=== PATIENT | female | born 1985 | race African-American/Black ===

== ENCOUNTER 2020-11-11 18:23 | Inpatient (IN) | payer OTHER ==
[2020-11-11 19:48] VITALS: BMI 27.5
[2020-11-11] MEDS ORDERED: MAG HYDROX/AL HYDROX/SIMETH 30 ML UNIT-DOSE CUP PO PRN (21:08)
[2020-11-11] MEDS ORDERED: MENTHOL/PHENOL 1 EACH UD MM PRN (21:08)
[2020-11-11] MEDS ORDERED: NICOTINE POLACRILEX 2 MG GUM BUC PRN (21:08)
[2020-11-11] MEDS ORDERED: ONDANSETRON *ODT* 4 MG TABLET SL PRN (21:08)
[2020-11-11] MEDS ORDERED: METHOCARBAMOL 500 MG TABLET PO PRN (21:08)
[2020-11-11] MEDS ORDERED: ACETAMINOPHEN 325 MG TABLET (FP) PO PRN (21:08)
[2020-11-11] MEDS ORDERED: MAGNESIUM CITRATE 300 ML BOTTLE PO PRN (21:08)
[2020-11-11] MEDS ORDERED: MAGNESIUM HYDROX 2400MG/30ML ORAL SUSPENSION 30 ML CUP PO PRN (21:08)
[2020-11-11] MEDS ORDERED: LORazepam 1 MG TABLET PO PRN (21:08)
[2020-11-11] MEDS ORDERED: BISMUTH SUBSALICYLATE 524 MG/30 ML PO PRN (21:08)
[2020-11-11] MEDS ORDERED: LORazepam 2 MG TABLET ONE (23:26)
[2020-11-11] MEDS: MELATONIN 5 MG TABLETS PO SCH (23:28)
[2020-11-11] MEDS: LORazepam 2 MG TABLET PO SCH (23:28)
[2020-11-11] MEDS: THIAMINE HCL 100 MG TABLET (FP) PO SCH (23:29)
[2020-11-12 11:07] LABS: HEMATOCRIT 37.6 % (32.4-45.2); MCH 32.7 pg (25.7-33.7); MCHC 34.7 g/dl (32.0-36.0); MEAN CELL VOLUME 94.4 fl (80-96); MEAN PLT VOLUME 8.5 fl (7.5-11.1); PLATELET COUNT 269 K/MM3 (134-434); RBC 3.98 M/mm3 (3.60-5.2); RDW 13.7 % (11.6-15.6); WHITE BLOOD COUNT 5.5 K/mm3 (4.0-10.0)
[2020-11-12 11:10] LABS: ALBUMIN 3.2 g/dl (3.4-5.0); CALCIUM 8.8 mg/dL (8.5-10.1)
[2020-11-12 11:11] LABS: BLOOD UREA NITROGEN 5.7 mg/dL (7-18)
[2020-11-12 11:14] LABS: CREATININE 0.4 mg/dL (0.55-1.3)
[2020-11-12 11:15] LABS: BILIRUBIN,TOTAL 1.1 mg/dL (0.2-1); TOT PROT 6.1 g/dl (6.4-8.2)
[2020-11-12] MEDS: NICOTINE 14 MG/24 HOURS TOPICAL PATCH TD SCH (13:22)
[2020-11-12] MEDS: LORazepam 2 MG TABLET PO SCH ×4 (13:22→22:43)
[2020-11-12] MEDS: PRENATAL VITAMINS W/ FOLIC ACID TABLET (FP) PO SCH (13:23)
[2020-11-12] MEDS: IBUPROFEN 400 MG TABLET (FP) PO PRN (20:30)
[2020-11-12] MEDS: THIAMINE HCL 100 MG TABLET (FP) PO SCH (22:43)
[2020-11-12] MEDS: MELATONIN 5 MG TABLETS PO SCH (22:43)
[2020-11-13] MEDS: LORazepam 1 MG TABLET PO SCH ×2 (05:48→11:36)
[2020-11-13] MEDS: ACETAMINOPHEN 325 MG TABLET (FP) PO PRN ×2 (05:49→18:24)
[2020-11-13] MEDS: IBUPROFEN 400 MG TABLET (FP) PO PRN (10:37)
[2020-11-13] MEDS: PRENATAL VITAMINS W/ FOLIC ACID TABLET (FP) PO SCH (11:36)
[2020-11-13] MEDS: NICOTINE 14 MG/24 HOURS TOPICAL PATCH TD SCH (11:36)
[2020-11-13] MEDS ORDERED: LORazepam 1 MG TABLET PO PRN (12:25)
[2020-11-13] MEDS ORDERED: POTASSIUM CHLORIDE ORAL LIQUID 20 MEQ/15 ML PO ONE ×2 (13:00→17:00)
[2020-11-13] MEDS ORDERED: LORazepam 1 MG TABLET PO SCH (17:00)
[2020-11-13] MEDS ORDERED: LORazepam 0.5 MG TABLET PO PRN (17:55)
[2020-11-13] MEDS: LORazepam 0.5 MG TABLET PO SCH ×2 (18:23→22:02)
[2020-11-13] MEDS: THIAMINE HCL 100 MG TABLET (FP) PO SCH (22:03)
[2020-11-13] MEDS: MELATONIN 5 MG TABLETS PO SCH (22:03)
[2020-11-14] MEDS ORDERED: LORazepam 0.5 MG TABLET PO PRN
[2020-11-14] MEDS ORDERED: LORazepam 0.5 MG TABLET PO ONE (05:00)
[2020-11-14] MEDS ORDERED: LORazepam 0.5 MG TABLET PO SCH (05:00)
[2020-11-14] MEDS: ACETAMINOPHEN 325 MG TABLET (FP) PO PRN (06:02)
[2020-11-14] MEDS: PRENATAL VITAMINS W/ FOLIC ACID TABLET (FP) PO SCH (11:02)
[2020-11-14] MEDS: NICOTINE 14 MG/24 HOURS TOPICAL PATCH TD SCH (11:02)
[2020-11-14 11:26] VITALS: BP 121/75; PULSE 89; TEMP 97.8
[2020-11-15] MEDS ORDERED: LORazepam 0.5 MG TABLET PO ONE ×2 (05:00)
[2020-11-15] MEDS ORDERED: COVID-19 VAC,AD26(JANSSEN)/PF 0.5 ML IM ONE (09:00)
== END 2020-11-14 11:59 | disposition home or self-care (01) | DRG 774 ==
LOC: YASAS 18:23 → Y6N 11-12 12:09
PROVIDERS: ADMIT Allergy & Immunology; ATTEND Allergy & Immunology
PROC: HZ2ZZZZ Detoxification Services for Substance Abuse Treatment (ICD-10-PCS; principal; 2020-11-12)
DX: F10.230 Alcohol dependence with withdrawal, uncomplicated (principal); F14.20 Cocaine dependence, uncomplicated; F15.20 Other stimulant dependence, uncomplicated; F16.20 Hallucinogen dependence, uncomplicated; F12.20 Cannabis dependence, uncomplicated; F17.210 Nicotine dependence, cigarettes, uncomplicated; F19.24 Other psychoactive substance dependence with psychoactive substance-induced mood disorder; E87.6 Hypokalemia; J45.909 Unspecified asthma, uncomplicated; Z56.0 Unemployment, unspecified; Z59.0 Homelessness
CPT/HCPCS: 36415; 80053; 81025; 84132; 85027; 86780; 93005; 93010; C9803; U0003; U0005